=== PATIENT | female | born 1935 | race Two or more races ===

== ENCOUNTER 2019-01-30 10:19 | Outpatient (CLI) | payer OTHER | END 2019-01-30 10:34 | disposition home or self-care (01) | LOC: TOM 10:19 | DX: R10.13 Epigastric pain (principal); K30 Functional dyspepsia; K31.89 Other diseases of stomach and duodenum; K22.10 Ulcer of esophagus without bleeding; Z86.010 Personal history of colon polyps; E73.8 Other lactose intolerance; K63.5 Polyp of colon ==

== ENCOUNTER → 2025-05-13 10:28 | Outpatient (CLI) | payer OTHER | END | disposition home or self-care (01) | LOC: SONOGRAMA 10:28 | PROVIDERS: ATTEND Internal Medicine Gastroenterology | DX: K74.00 Hepatic fibrosis, unspecified (principal); K76.0 Fatty (change of) liver, not elsewhere classified; R10.11 Right upper quadrant pain; R10.10 Upper abdominal pain, unspecified; E73.9 Lactose intolerance, unspecified; K31.89 Other diseases of stomach and duodenum; Z86.0100 Personal history of colon polyps, unspecified ==